=== PATIENT | male | born 1965 | race African-American/Black ===

== ENCOUNTER 2018-06-08 09:37 | Emergency (ER) | payer SELFPAY ==
[2018-06-08 10:10] LABS: #Eosinphils 0.1 thou/uL (0.0-0.7); #Lymphocytes 1.6 thou/uL (1.20-3.40); #Monocytes 0.5 thou/uL (0.11-0.59); #Neutrophils 7.8 thou/uL (1.40-6.50); %Basophils 0.4 % (0.0-1.0); %Eosinophils 0.8 % (0.0-10.0); %Lymphocytes 16.4 % (21.0-51.0); %Monocytes 4.8 % (0.0-10.0); %Neutrophils 77.6 % (42.0-75.0); Hemoglobin 11.3 g/dL (14.0-18.0); Mean Corpuscular HGB CONC 34.6 g/dL (32.0-36.0); Mean Corpuscular Volume 86.9 fL (78.0-98.0); Mean Platelet Volume 5.4 fL (7.4-10.4); Platelet Count 505 thou/uL (130-400); RBC Distribution Width 14.7 % (11.5-14.5); Red Blood Cell (RBC) Count 3.75 mill/uL (4.70-6.10)
[2018-06-08] MEDS ORDERED: traMADol HCl 50 MG TAB ONE (10:12)
[2018-06-08 10:29] LABS: Bilirubin Moderate (Negative); Blood, Urine Large (Negative); Clarity CLOUDY (Clear); Glucose, Urine (Dipstick) Negative (Negative); Leukocyte Moderate (Negative); Nitrite Positive (Negative); Protein, Urine (Dipstick) 300 mg/dL (Neg-Trace); Specific Gravity, Urine 1.013 (1.002-1.036); pH, Urine 5.5 (5.0-9.0)
[2018-06-08 10:31] LABS: ALT (SGPT) 17 U/L (8-55); AST (SGOT) 18 U/L (5-34); Albumin 3.9 g/dL (3.5-5.0); Alkaline Phosphatase 88 U/L (40-150); Anion Gap 12 mmol/L (10-20); BUN (Urea Nitrogen) 11 mg/dL (8.4-25.7); Bilirubin, Total 0.8 mg/dL (0.2-1.2); Calc. Creatinine Clearance 0 mL/min (70-130); Calcium 9.8 mg/dL (7.8-10.44); Carbon Dioxide 26 mmol/L (22-29); Chloride 104 mmol/L (98-107); Estimated GFR-MDRD 66; Glucose 120 mg/dL (70-105); Protein, Total 7.9 g/dL (6.0-8.3); Sodium 138 mmol/L (136-145)
[2018-06-08 10:31] LABS: Hyaline Casts/LPF 0-3 HYALINE CAST LPF (0-3 Hyaline)
[2018-06-08 10:35] LABS: Bacteria/HPF 2+ HPF (None Seen); Squamous Epithelial 0-3 HPF (0-3)
[2018-06-08 10:46] LABS: INR-International Normal Ratio 1.1; Prothrombin Time 14.3 SEC (12.0-14.7)
[2018-06-08 10:47] LABS: PTT 38.8 SEC (22.9-36.1)
[2018-06-08] MEDS ORDERED: Ciprofloxacin 500 MG TAB ONE (11:24)
--- NOTE | 2018-06-08 11:47 | CT ---
ABDOMEN CT WITH CONTRAST: PELVIS CT WITH CONTRAST: HISTORY: One month of gross hematuria. Right flank pain. COMPARISON: 03/14/2012 TECHNIQUE: Abdomen and pelvis CT are performed with IV or oral contrast, utilizing renal stone protocol. Reform atted images are submitted. FINDINGS: ABDOMEN: There are areas of scar and atelectasis in the lung bases. There is a nonspecific 3 mm nod ule in the right lower lobe. There is an additional 3 mm nodule at the posterior aspect of the right lower lobe. Heart size is normal. No pericardial effusion. The descending thoracic aorta and abdominal aorta brody ve a normal caliber. There is minimal atherosclerosis. No periaortic fat stranding. Symmetric attenuation of the psoas muscles. Limited evaluation of the solid organs by lack of IV contrast. Grossly, no solid organ abnormality. The gallbladder is unremarkable. Limited evaluation for inflammatory change due to decreased intraabdominal fat. No definite mesenter ic mass, lymphadenopathy, free air, or free fluid. No gastrohepatic, retrocrural or periportal lymph adenopathy. Limited evaluation of the alimentary canal due to lack of oral contrast. No obvious bowel obstructio n. The ileocecal junction appears to be normal. Normal caliber, air filled appendix. Scattered fec al material in a nondistended, nondilated colon. Nonobstructing 1 to 2 mm calculus at the lower aspect of the right kidney. There is minimal right-si ded perinephric fat stranding. Mild heterogeneous appearance of the right renal parenchyma does sugg est a component of edema. There is mild dilatation of the right intrarenal collecting system. There appears to be mild periureteral fat stranding involving the proximal right ureter. Evaluation of th e left and right ureters is limited by decreased intraabdominal fat. There do not appear to be any o bvious obstructing calculi along the expected course of either ureter. PELVIS: There is no pelvic mass, lymphadenopathy, free air, or free fluid. There does appear to be mild mucosal thickening of the urinary bladder. There is some deformity of t he floor of the urinary bladder, which may, in part, be due to prostatic hypertrophy; however, the po ssibility of a mucosal based mass involving the floor of the urinary bladder cannot be excluded. Cys toscopy is recommended. There are no lytic or blastic lesions in the osseous structures. Sclerosis involving the inferior as pect of L5 and the superior aspect of S1 is likely on the basis of degenerative change. IMPRESSION: 1. There do appear to be mild obstructive changes involving the right kidney. An associated obstruc ting calculus is not appreciated. Retrograde intravenous pyelogram is recommended. There is a nonob structing calculus in the lower pole of the right kidney. 2. Mucosal thickening in the urinary bladder with questionable mass effect upon the floor of the alexandru dder due to prostatic hypertrophy versus a mucosal based lesion on the floor of the urinary bladder. Cystoscopy is recommended. POS: MARY
== END 2018-06-08 11:33 | disposition home or self-care (01) ==
LOC: ERS 09:37
DX: N39.0 Urinary tract infection, site not specified (principal); R31.9 Hematuria, unspecified; I10 Essential (primary) hypertension; F17.210 Nicotine dependence, cigarettes, uncomplicated
CPT/HCPCS: 36415; 74176; 80053; 81003; 81015; 85025; 85610; 85730

== ENCOUNTER 2021-04-09 22:51 | Emergency (ER) | payer OTHER, SELFPAY | END 2021-04-10 02:10 | disposition home or self-care (01) | LOC: ERS 22:51 | DX: M25.511 Pain in right shoulder (principal); I10 Essential (primary) hypertension; F17.210 Nicotine dependence, cigarettes, uncomplicated; V89.2XXA Person injured in unspecified motor-vehicle accident, traffic, initial encounter ==

== ENCOUNTER 2021-08-05 21:28 | Emergency (ER) | payer SELFPAY ==
[2021-08-05 23:45] LABS: #Eosinphils 0.1 thou/uL (0.0-0.7); #Lymphocytes 1.1 thou/uL (1.20-3.40); #Neutrophils 11.3 thou/uL (1.40-6.50); %Basophils 0.3 % (0.0-1.0); %Eosinophils 0.8 % (0.0-10.0); %Monocytes 7.1 % (0.0-10.0); %Neutrophils 83.7 % (42.0-75.0); Hemoglobin 14.1 g/dL (14.0-18.0); Mean Corpuscular HGB CONC 34.7 g/dL (32.0-36.0); Mean Corpuscular Hemoglobin 32.9 pg (27.0-31.0); Mean Corpuscular Volume 94.9 fL (78.0-98.0); Mean Platelet Volume 6.1 fL (7.4-10.4); Platelet Count 424 thou/uL (130-400); RBC Distribution Width 12.4 % (11.5-14.5); Red Blood Cell (RBC) Count 4.29 mill/uL (4.70-6.10); White Blood Cell (WBC) Count 13.4 thou/uL (4.8-10.8)
[2021-08-06 00:03] LABS: Anion Gap 16 mmol/L (10-20); BUN (Urea Nitrogen) 50 mg/dL (8.4-25.7); Calc. Creatinine Clearance 0 mL/min (70-130); Calcium 10.4 mg/dL (7.8-10.44); Carbon Dioxide 25 mmol/L (22-29); Chloride 103 mmol/L (98-107); Glucose 127 mg/dL (70-105); Potassium 4.7 mmol/L (3.5-5.1); Sodium 139 mmol/L (136-145)
[2021-08-06] MEDS ORDERED: Ondansetron PF 4 MG/2 ML Vial ONE (00:48)
[2021-08-06] MEDS ORDERED: Morphine 4 MG/ML VIAL ONE (00:48)
[2021-08-06 01:29] LABS: Bacteria/HPF 2+ HPF (None Seen); Bilirubin Negative (Negative); Blood, Urine 1+ (Negative); Clarity Turbid (Clear); Glucose, Urine (Dipstick) Normal (Negative); Ketone, Urine Negative (Negative); Leukocyte 500 Leu/uL (Negative); Nitrite Negative (Negative); Protein, Urine (Dipstick) 20 mg/dL (Neg-Trace); Specific Gravity, Urine 1.011 (1.002-1.036); Squamous Epithelial None Seen HPF (0-3); Triple Phosphate Crystal 2+ HPF (None Seen); Urobilinogen Normal mg/dL (Less than 2); WBC/HPF Greater than 50 HPF (0-3); pH, Urine 7.5 (5.0-9.0)
[2021-08-06 01:57] LABS: ALT (SGPT) 46 U/L (8-55); AST (SGOT) 59 U/L (5-34); Albumin 3.9 g/dL (3.5-5.0); Alkaline Phosphatase 68 U/L (40-110); Anion Gap 16 mmol/L (10-20); BUN (Urea Nitrogen) 52 mg/dL (8.4-25.7); Bilirubin, Total 0.9 mg/dL (0.2-1.2); Calc. Creatinine Clearance 0 mL/min (70-130); Calcium 9.7 mg/dL (7.8-10.44); Carbon Dioxide 22 mmol/L (22-29); Chloride 103 mmol/L (98-107); Glucose 118 mg/dL (70-105); Lipase 42 U/L (8-78); Potassium 4.4 mmol/L (3.5-5.1); Protein, Total 6.9 g/dL (6.0-8.3); Sodium 137 mmol/L (136-145)
[2021-08-06] MEDS ORDERED: cefTRIAXone\\ROCEPHIN 2 GM VIAL ONE (02:12)
== END 2021-08-06 03:02 | disposition home or self-care (01) ==
LOC: ERS 21:28
DX: N39.0 Urinary tract infection, site not specified (principal); R33.9 Retention of urine, unspecified; I10 Essential (primary) hypertension; F17.210 Nicotine dependence, cigarettes, uncomplicated
CPT/HCPCS: 36415; 80048; 80053; 81003; 81015; 83690; 85025; 96365; 96375; J0696; J2270; J2405

== ENCOUNTER 2021-08-22 10:53 | Emergency (ER) | payer SELFPAY ==
[2021-08-22 13:24] LABS: Bilirubin Negative (Negative); Blood, Urine 1+ (Negative); Clarity Extra Turbid (Clear); Glucose, Urine (Dipstick) Normal (Negative); Ketone, Urine Negative (Negative); Leukocyte 500 Leu/uL (Negative); Nitrite Negative (Negative); Protein, Urine (Dipstick) 100 mg/dL (Neg-Trace); Specific Gravity, Urine 1.013 (1.002-1.036); Squamous Epithelial 0-3 HPF (0-3); Urobilinogen Normal mg/dL (Less than 2); WBC/HPF Greater than 50 HPF (0-3); pH, Urine 7.5 (5.0-9.0)
[2021-08-22 13:31] LABS: Bacteria/HPF 1+ HPF (None Seen)
== END 2021-08-22 14:10 | disposition home or self-care (01) ==
LOC: ERS 10:53
DX: N39.0 Urinary tract infection, site not specified (principal); N40.1 Benign prostatic hyperplasia with lower urinary tract symptoms; R33.8 Other retention of urine; F17.210 Nicotine dependence, cigarettes, uncomplicated
CPT/HCPCS: 51702; 81003; 81015; 87077; 87086; 87186

== ENCOUNTER 2021-09-11 20:47 | Emergency (ER) | payer SELFPAY | END 2021-09-11 22:25 | disposition home or self-care (01) | LOC: ERS 20:47 | DX: R30.0 Dysuria (principal); F17.210 Nicotine dependence, cigarettes, uncomplicated | CPT/HCPCS: 99283 ==

== ENCOUNTER 2021-10-19 05:38 | Emergency (ER) | payer SELFPAY ==
[2021-10-19 06:39] LABS: Bacteria/HPF None Seen HPF (None Seen); Bilirubin Negative (Negative); Blood, Urine 1+ (Negative); Clarity Turbid (Clear); Glucose, Urine (Dipstick) Normal (Negative); Ketone, Urine Negative (Negative); Leukocyte 500 Leu/uL (Negative); Nitrite Negative (Negative); Protein, Urine (Dipstick) 20 mg/dL (Neg-Trace); Specific Gravity, Urine 1.014 (1.002-1.036); Squamous Epithelial None Seen HPF (0-3); Urobilinogen Normal mg/dL (Less than 2); WBC/HPF Greater than 50 HPF (0-3); pH, Urine 6.5 (5.0-9.0)
== END 2021-10-19 07:02 | disposition home or self-care (01) ==
LOC: ERS 05:38
DX: N30.00 Acute cystitis without hematuria (principal); R33.9 Retention of urine, unspecified; F17.210 Nicotine dependence, cigarettes, uncomplicated
CPT/HCPCS: 51703; 81003; 81015; 87077; 87086; 87186

== ENCOUNTER 2021-11-10 18:03 | Emergency (ER) | payer SELFPAY | END 2021-11-10 19:11 | disposition home or self-care (01) | LOC: ERS 18:03 | DX: Z46.6 Encounter for fitting and adjustment of urinary device (principal); F17.210 Nicotine dependence, cigarettes, uncomplicated | CPT/HCPCS: 99283 ==

== ENCOUNTER 2022-08-31 10:00 | Emergency (ER) | payer SELFPAY ==
[2022-08-31 10:59] LABS: Bacteria/HPF 4+ HPF (None Seen); Bilirubin Negative (Negative); Blood, Urine 2+ (Negative); Clarity Turbid (Clear); Glucose, Urine (Dipstick) Normal (Negative); Ketone, Urine Negative (Negative); Leukocyte 500 Leu/uL (Negative); Nitrite 2+ (Negative); Protein, Urine (Dipstick) 30 mg/dL (Neg-Trace); Specific Gravity, Urine 1.013 (1.002-1.036); Squamous Epithelial 0-3 HPF (0-3); Urobilinogen Normal mg/dL (Less than 2); WBC/HPF Greater than 50 HPF (0-3); pH, Urine 5.5 (5.0-9.0)
== END 2022-08-31 13:02 | disposition home or self-care (01) ==
LOC: ERS 10:00
DX: N39.0 Urinary tract infection, site not specified (principal); I10 Essential (primary) hypertension; F17.210 Nicotine dependence, cigarettes, uncomplicated
CPT/HCPCS: 81003; 81015; 87077; 87086; 99283

== ENCOUNTER 2023-05-05 15:36 | Outpatient (CLI) | payer BC, OTHER | END 2023-05-05 15:37 | disposition home or self-care (01) | LOC: ULT 15:36 | PROVIDERS: ATTEND Urology | DX: N39.0 Urinary tract infection, site not specified (principal); R93.41 Abnormal radiologic findings on diagnostic imaging of renal pelvis, ureter, or bladder | CPT/HCPCS: 76770 ==